=== PATIENT | male | born 2005 | race Caucasian/White ===

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

== ENCOUNTER → 2023-05-03 | Outpatient (CLI) | payer OTHER, MEDICAID ==
[~2023-05-03] MED LIST changes: +RISP1TAB42 PO; +SERT50TA29 PO
[2023-05-03 18:47] LABS: FREE T4 1.03 NG/DL (0.83-1.43); THYROID STIMULATING HORMONE 2.112 uIU/ML (0.48-4.17)
== END ==
LOC: M PLALAB 15:46
PROVIDERS: ATTEND Psychiatry & Neurology Psychiatry
DX: F29 Unspecified psychosis not due to a substance or known physiological condition (principal); F43.23 Adjustment disorder with mixed anxiety and depressed mood

== ENCOUNTER 2025-01-03 05:01 | Emergency (ER) | payer MEDICAID, OTHER ==
[~2025-01-03] VITALS: Ht 182.9 cm; Wt 80.5 kg
[~2025-01-03 05:01] MED LIST changes: -RISP-7 PO; +RISP0.5T82 PO
[2025-01-03] MEDS ORDERED: SPIR50TA4 (05:23)
[2025-01-03] MEDS ORDERED: LEVO25TA5 (05:23)
[2025-01-03] MEDS ORDERED: ESTR1DIS (05:23)
[2025-01-03] MEDS ORDERED: VRAY3CAP (05:23)
[2025-01-03] MEDS ORDERED: METO10TA2 (05:23)
[2025-01-03] MEDS ORDERED: OMEP-173 (05:23)
[2025-01-03 05:56] LABS: BASO # 0.1 10^3/uL (0.0-0.2); BASO % 0.7 % (0.0-1.0); EOS # 0.1 10^3/uL (0.0-0.5); EOS % 0.9 % (0.0-3.0); LYMPH # 2.5 10^3/uL (1.5-5.0); LYMPH % 31.4 % (24.0-44.0); MONO # 0.6 10^3/uL (0.0-0.8); MONO % 7.3 % (2.0-8.0); NEUTROPHILS # 4.8 10^3/uL (1.5-8.5); NEUTROPHILS % 59.6 % (36.0-66.0); PLATELET COUNT, AUTOMATED 234 10^3/uL (150-450)
[2025-01-03 06:31] LABS: ALT/SGPT 19 U/L (7.0-40); AST/SGOT 42 U/L (<34); CALCIUM LEVEL 9.4 MG/DL (8.5-10.1); CARBON DIOXIDE LEVEL 20 MMOL/L (20-31); CHLORIDE LEVEL 105 MMOL/L (98-107); CREATININE FOR GFR 0.71 MG/DL (0.70-1.30); GLOMERULAR FILTRATION RATE > 90.0 (>60); POTASSIUM SERUM 4.9 MMOL/L (3.5-5.1); SODIUM LEVEL 137 MMOL/L (136-145)
[2025-01-03 08:07] LABS: AMPHETAMINES LEVEL URINE NEGATIVE (NEGATIVE); BARBITURATES URINE NEGATIVE (NEGATIVE); CANNABINOIDS URINE NEGATIVE (NEGATIVE); COCAINE METABOLITE URINE NEGATIVE (NEGATIVE); METHADONE URINE NEGATIVE (NEGATIVE); OPIATES URINE NEGATIVE (NEGATIVE); PHENCYCLIDINE URINE NEGATIVE (NEGATIVE)
[2025-01-03 08:13] LABS: BENZODIAZEPINES URINE POSITIVE (NEGATIVE)
[2025-01-03 09:08] VITALS: BP 114/71; TEMP 97.5; O2SAT 96
== END 2025-01-03 09:42 | disposition home or self-care (01) ==
LOC: M ED 05:01
DX: R10.9 Unspecified abdominal pain (principal); F13.10 Sedative, hypnotic or anxiolytic abuse, uncomplicated; K21.9 Gastro-esophageal reflux disease without esophagitis; F25.9 Schizoaffective disorder, unspecified; F10.10 Alcohol abuse, uncomplicated; F12.10 Cannabis abuse, uncomplicated; Z91.040 Latex allergy status; Z88.8 Allergy status to other drugs, medicaments and biological substances; Z91.048 Other nonmedicinal substance allergy status; Z79.899 Other long term (current) drug therapy